=== PATIENT | male | born 1955 | race Hispanic/Latino ===

== ENCOUNTER 2016-07-06 14:15 | Emergency (ER) | payer SELFPAY ==
[~2016-07-06] VITALS: Ht 165.1 cm; Wt 52.0 kg
[~2016-07-06 14:15] MED LIST: CIPROFLOXACN500 MG PO; CLONIDINE0.1 MG PO; FLOMAX0.4 M1 PO; NO HOME MEDS; PREVACID30 M2 PO; ULTRAM50 M1 PO
[2016-07-06 14:32] LABS: HEMATOCRIT 40.5 % (39.0-50.0); HEMOGLOBIN 13.9 g/dl (14.0-18.0); IMMATURE GRANULOCYTES 0.2 % (0.0-1.0); MEAN CELL VOLUME 94.2 fL CALC (80.0-100.0); MEAN CORPUSCULAR HGB 32.3 pG CALC (26.0-32.0); MEAN CORPUSCULAR HGB CONC 34.3 g/L CALC (32.0-36.0); NEUT# 2.52 thou/uL (1.82-7.42); RED BLOOD COUNT 4.3 mill/uL (4.70-6.10); RED CELL DISTRI WIDTH 13.1 % (11.5-15.5)
[2016-07-06 14:45] LABS: ALBUMIN 3.9 g/dL (3.2-5.0); ALKALINE PHOSPHATASE 76 u/l (38-126); ANION GAP 17 (6-22 (CALC)); BILIRUBIN, TOTAL 0.5 mg/dL (0.0-1.4); BUN 6 mg/dL (8-23); BUN/CREATININE RATIO 9 (12-20 (CALC)); CARBON DIOXIDE 24 mmol/l (22-30); CHLORIDE 109 mmol/l (95-108); CREATININE 0.7 mg/dL (0.7-1.3); GFR > 60 ML/MIN (>=60 (CALC)); GFR FOR AFR.AMER. > 60 ML/MIN (>=60 (CALC)); GLUCOSE 100 mg/dL (82-115); SGOT/AST 34 u/l (19-48); SGPT/ALT 44 u/l (11-66); SODIUM 146 mmol/l (137-146); TOTAL PROTEIN 7.2 g/dL (6.3-8.2)
[2016-07-06 14:56] LABS: MYOGLOBIN 81 ng/mL (0 - 121)
[2016-07-06 14:57] LABS: ETHYL ALCOHOL 342 mg/dl (0-30)
[2016-07-06 15:11] LABS: URINE BILIRUBIN - DIPSTICK NEGATIVE (NEGATIVE); URINE BLOOD DIPSTICK NEGATIVE (NEGATIVE); URINE CLARITY CLEAR; URINE COLOR YELLOW; URINE GLUCOSE - DIPSTICK NEGATIVE (NEGATIVE); URINE KETONE NEGATIVE (NEGATIVE); URINE LEUK ESTERASE NEGATIVE (NEGATIVE); URINE NITRITE - DIPSTICK NEGATIVE (Negative); URINE PH 5.5 (4.5-8.0); URINE PROTEIN - DIPSTICK NEGATIVE (NEG-TRACE); URINE SPECIFIC GRAVITY <=1.005; URINE UROBILINOGEN - DIPSTICK 0.2 E.U./dL (0.2)
[2016-07-06 15:15] LABS: BARBITURATES NEGATIVE (NEGATIVE); COCAINE NEGATIVE (NEGATIVE); METHADONE NEGATIVE (NEGATIVE); OXCYCODONE NEGATIVE (NEGATIVE); TETRAHYDROCANNABIONOL NEGATIVE (NEGATIVE); TRICYLIC ANTIDEPRESSANTS NEGATIVE (NEGATIVE)
[2016-07-06 18:48] VITALS: BP 149/79
== END 2016-07-06 18:49 | disposition home or self-care (01) | DRG 897 ==
LOC: ED 14:15
PROVIDERS: Emergency Medicine
DX: F10.129 Alcohol abuse with intoxication, unspecified (principal); R41.0 Disorientation, unspecified; Y90.8 Blood alcohol level of 240 mg/100 ml or more

== ENCOUNTER 2021-03-05 12:43 | Emergency (ER) | payer SELFPAY ==
[~2021-03-05] VITALS: Ht 165.1 cm; Wt 68.1 kg
[2021-03-05] MEDS ORDERED: NORVASC5 M1 PO (13:43)
[2021-03-05 14:19] VITALS: BP 189/95
== END 2021-03-05 14:20 | disposition home or self-care (01) | DRG 392 ==
LOC: ED 12:43
DX: R10.32 Left lower quadrant pain (principal); I10 Essential (primary) hypertension

== ENCOUNTER 2023-10-21 01:43 | Emergency (ER) | payer SELFPAY ==
[~2023-10-21] VITALS: Ht 165.1 cm; Wt 67.0 kg
[2023-10-21] VITALS (11 sets, daily range): BP systolic 125–200; BP diastolic 81–169
[~2023-10-21 01:43] MED LIST changes: +NORVASC5 M1 PO
== END 2023-10-21 08:56 | disposition home or self-care (01) | DRG 897 ==
LOC: ED 01:43 → EDBD 01:43 → ED 02:23
DX: F10.129 Alcohol abuse with intoxication, unspecified (principal); I10 Essential (primary) hypertension